=== PATIENT | male | born 1945 | race Hispanic/Latino ===

== ENCOUNTER 2020-07-13 07:26 | Day surgery (SDC) | payer MEDICARE ==
[~2020-07-13 07:26] MED LIST: AMLO-257 PO; ATOR20TA65 PO; CALC667T6 PO; CLOP75TA14 PO; FOLI0.8T22 PO; FOLI1TAB15 PO; INSU100V12 SQ; LEVO175T4 PO; LISI40TA9 PO; METO-409 PO; SODIUM CHLORIDE 0.9% 1000ML 1,000 ML IV ONE
[2020-07-13 08:00] VITALS: BP 135/62
[2020-07-13 08:44] LABS: CREATININE 6.6 mg/dL (0.5-1.5); POTASSIUM 4.5 mmol/L (3.5-5.1)
[2020-07-13] MEDS ORDERED: PROPOFOL 10 MG/ML 20ML VIAL IV ONE (09:41)
[2020-07-13 09:55] VITALS: BP 106/51
[2020-07-13 10:00] VITALS: BP 109/33
[2020-07-13 10:05] VITALS: BP 115/61
[2020-07-13 10:10] VITALS: BP 130/67
[2020-07-13 10:15] VITALS: BP 142/52
== END 2020-07-13 10:31 | disposition home or self-care (01) ==
LOC: ENDO 07:26 → DAH 07:26 → ENDO 10:31
PROVIDERS: ATTEND Internal Medicine Gastroenterology
DX: K92.1 Melena (principal); E11.9 Type 2 diabetes mellitus without complications; I11.0 Hypertensive heart disease with heart failure; I50.20 Unspecified systolic (congestive) heart failure; I25.10 Atherosclerotic heart disease of native coronary artery without angina pectoris; Z95.810 Presence of automatic (implantable) cardiac defibrillator; E78.5 Hyperlipidemia, unspecified; Z79.82 Long term (current) use of aspirin; Z79.01 Long term (current) use of anticoagulants; Z79.899 Other long term (current) drug therapy; Z20.828 Contact with and (suspected) exposure to other viral communicable diseases
CPT/HCPCS: 36415; 45378; 80048; 82948 ×2; 93005; A4215; A4221; A4222; A4223; A4606; A4620; A4663; C9803; J2704; J7030; U0003